=== PATIENT | female | born 1985 | race Caucasian/White ===

== ENCOUNTER 2020-01-10 07:36 | Inpatient (IN) ==
[2020-01-10] MEDS ORDERED: OXYTOCIN 30 UNITS/500 ML BAG IV PRN ×2 (08:38→22:58)
[2020-01-10] MEDS ORDERED: DINOPROSTONE 10 MG INSERT PV ONE (08:45)
--- NOTE | 2020-01-10 08:48 | History & Physical Report ---
Date of Service January 10, 2020 Assessment & Plan (1) Elective induction of labor planned: 34-year-old -0-2-2 female at 39 weeks and 3 days of gestation, presenting for induction of labor at term due to suspected larger baby Vital signs stable afebrile heart rate reassuring, estimated weight is 3687 g within normal range GBS negative, coronavirus testing is negative Cervix unfavorable Discussed induction of labor, induction agents and what to expect during induction of labor Understands it may take a 1 to 2 days Plan to admit, monitor, labs and cervical ripening with Cervidil All questions were answered Admission and Anticipated Discharge Date Admission Date: January 10, 2020 History of Present Illness Primary Care Provider: Jonathon Caba MD Patient is a 34-year-old -0-2-2 at 39 weeks and 3 days of gestation who is being admitted for induction of labor at term due to baby is measuring around 78 percentile per ultrasound. Patient has no complaints. Patient denies contractions, leakage of fluid, vaginal bleeding, headaches change in her vision, nausea or vomiting, fever nor chills, chest pain shortness of breath and leg pain. She reports good movements She denies any medical problems Advanced maternal age, and NIPT testing was low risk GBS is negative, coronavirus is negative. Patient had 2 spontaneous vaginal deliveries 9 and 11 years ago. Her last baby was 8 pounds 9 ounces and delivered without any problems. This is a new and father of baby Discuss risks of larger babies during labor and delivery with possible shoulder dystocia and possible risks to the baby Understands ultrasound is not 100% correct to estimate weight. Bedside ultrasound is done by myself, estimated weight is 3687 g. Patient understands all and desires to proceed with induction of labor. All questions were answered. 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 Beliefs That Will Affect Care: None marital status: Current Living Situation: Spouse current occupational status: employed Other Information That Helps Us Care for You: No Feels Safe at Home: Yes Safety Concerns: Feels Safe At This Time Assistive Devices: None OB History FT 's in 2009 and 2011 Ectopic in 2019: Treated with MTX Early 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/o STD's , no HSV/ Chlam/ GC Review of Systems All systems reviewed & are unremarkable except as noted in HPI & below Physical Exam Constitutional: WD/WN, vitals as above well developed Confortable Gastrointestinal (Abdomen): normal bowel sounds, soft, nontender, no hepatosplenomegaly (gravid) Genitourinary: normal external appearance Manual OB Exam: + cervical dilation 1 cm, + cervical effacement 30% and + station high OB Exam Monitor Tracing: + external uterine monitor used and + category I Results & Data ([facility]) Vital Signs (Past 12 Hours) Vital Signs Temp Pulse Resp BP 01/10/20 07:45 125 H 135/75 01/10/20 07:43 36.5 C 20
[2020-01-10 11:40] LABS: Basophils # (auto) 0.01 K/uL (0-0.2); Basophils % (auto) 0.1 %; Eosinophils # (auto) 0.08 K/uL (0-0.5); Eosinophils % (auto) 0.9 %; Hematocrit (blood only) 36.4 % (37-47); Hemoglobin 12.4 g/dL (12.0-16.0); Immature Granulocytes # (auto) 0.04 K/uL (0.00-0.02); Immature Granulocytes % (auto) 0.4 %; Lymphocytes # (auto) 1.76 K/uL (1.2-3.4); Lymphocytes % (auto) 19.5 %; Mean Corpuscular Hemoglobin 31.2 pg (25-34); Mean Corpuscular Hgb Conc 34.1 g/dL (32-36); Mean Corpuscular Volume 91.5 fL (80-100); Monocytes # (auto) 0.69 K/uL (0.11-0.59); Monocytes % (auto) 7.6 %; Neutrophils # (auto) 6.46 K/uL (1.4-6.5); Neutrophils % (auto) 71.5 %; Platelet Count 238 K/uL (130-400); RDW Coefficient of Variation 13.2 % (11.5-14.5); Red Blood Count 3.98 M/uL (4.2-5.4); White Blood Count 9.04 K/uL (4.8-10.8)
[2020-01-10] MEDS ORDERED: BUTORPHANOL TARTRATE 1 MG/ML VIAL IV PRN (22:55)
[2020-01-10] MEDS ORDERED: ONDANSETRON INJ 2 MG/ML 2 ML VIAL IV PRN (22:55)
[2020-01-10] MEDS ORDERED: FLUCONAZOLE 50 MG TAB PO ONE (22:55)
--- NOTE | 2020-01-10 22:58 | Obstetrical Progress Note ---
Date of Service January 10, 2020 Assessment & Plan Admission and Anticipated Discharge Date Admission Date: January 10, 2020 Subjective Patient is reevaluated She feels mild irregular ctxs No LOF/VB +FM's She is hungry and desires to eat VSS afebrile FHR categ I [place] ctxs 1 -5 min, was irregular, last 4 were regular q 1-2 min VE: Abundant cheezy d/c and dryness, c/w vaginal cierra Cervix: 3/ 50%/ -2 Plan 1 tb of Diflucan, light diet, continue to monitor closely Start pitocin when ctxs space out Results & Data ([facility]) Vital Signs (Past 12 Hours) Vital Signs Temp Pulse Resp BP 01/10/20 22:41 83 105/59 L 01/10/20 20:59 36.6 C 89 18 112/59 L 01/10/20 18:54 98 H 117/76 01/10/20 15:07 92 H 111/59 L 01/10/20 15:06 36.5 C 20 01/10/20 11:10 36.5 C 107 H 20 110/55 L
[2020-01-11] MEDS ORDERED: ePHEDrine sulfate 50 MG/ML AMP ONE (03:40)
[2020-01-11] MEDS ORDERED: BUPIVACAINE 0.25% 30 ML VIAL ONE (03:41)
[2020-01-11] MEDS ORDERED: SODIUM CHLORIDE 0.9% INJ 10 ML VIAL ONE (03:41)
[2020-01-11] MEDS ORDERED: fentaNYL citrate 100 MCG/2 ML VIAL ONE (03:41)
[2020-01-11] MEDS ORDERED: fentaNYL 2MCG/ML ROPIVACAINE 1.25MG/ML 100 ML BAG EPI ONE (03:42)
[2020-01-11] MEDS ORDERED: ONDANSETRON INJ 2 MG/ML 2 ML VIAL IV PRN (03:45)
[2020-01-11] MEDS ORDERED: ePHEDrine sulfate 50 MG/ML AMP IV PRN (03:45)
[2020-01-11] MEDS ORDERED: NALOXONE HCL 1 MG in SODIUM CHLORIDE 0.9% 1000ML 1,000 ML IV PRN (03:45)
[2020-01-11] MEDS ORDERED: fentaNYL 2MCG/ML ROPIVACAINE 1.25MG/ML 100 ML BAG EPI PRN (03:45)
[2020-01-11] MEDS ORDERED: NALOXONE HCL 0.4 MG/1 ML VIAL/CARP IV PRN (03:45)
[2020-01-11] MEDS ORDERED: diphenhydrAMINE 50 MG/ML VIAL IV PRN (03:45)
--- NOTE | 2020-01-11 03:46 | Anesthesiology Consultation ---
Date of Service January 11, 2020 Assessment & Plan (1) Encounter for pre-operative examination: Chart Review Chart Review: Patient NOT seen in Pre Admission Testing and Acceptable Risk for Labor Epidural Consults Requested none History Height/Weight Height: 5 ft 6 in Weight: 78.925 kg Allergies Allergy/AdvReac Type Severity Reaction Status Date / Time No Known Allergies Allergy Unknown Verified 01/10/20 07:49 Medications Home Medications Medication Instructions Recorded Confirmed Last Taken prenat.vits,ratna,uqc-elue-djiju 1 tab PO DAILY 12/04/18 01/10/20 01/06/20 08:00 Active Medications Generic Name Dose Route Start Last Admin Trade Name Freq PRN Reason Stop Dose Admin Oxytocin 30 units in 500 mls @ 8 mls/hr 01/10/20 22:58 01/11/20 02:30 Pitocin IV 01/12/20 22:57 0.48 units/hr .Q24H PRN 8 mls/hr Labor Induction/Augmentation Titration Protocol 0.48 UNITS/HR Past Medical History Medical History (Updated 01/11/20 @ 03:46 by Golden Cao MD) Ectopic Exercise / Class Metabolic Activity II 4-5 Yardwork/Stairs/Walk up hill Past Surgical History Surgical History No significant past surgical history Past Anesthesia History No Hx of Anesthesia Complications and No Family Hx of Anesthesia Complications History of PONV No Hx of PONV and No Hx of Motion Sickness Social History Smoking Status: Never smoker Do You Dip or Chew Tobacco: No Hx Alcohol Use: No Hx Substance Use: No Physical Exam Vital Signs Last Vital Signs Temp 36.5 C 01/11/20 01:59 Pulse 95 H 01/11/20 04:04 Resp 18 01/11/20 01:59 BP 144/78 H 01/11/20 04:04 Pulse Ox 97 01/11/20 04:03 Testing Laboratory Results 01/10/20 08:50 Blood Type A Positive 01/10/20 08:50 Antibody Screen NEGATIVE 01/10/20 08:50
[2020-01-11] MEDS: LACTATED RINGER'S 1,000 ML IV PRN ×3 (04:42→12:45)
--- NOTE | 2020-01-11 06:51 | Obstetrical Progress Note ---
Date of Service January 11, 2020 Assessment & Plan Admission and Anticipated Discharge Date Admission Date: January 10, 2020 Subjective Patient received epidural and comfortable VSS Afebrile VE: 4-5 cm/ 505/ -2, tight bag, AROM'ed clear fluid FHR 130's, variability was has been decreased for period of time and responded to scalp stimulation, good accels, no decel, moderate variability Pitocin has been off since 6 am due to decreased variability and mild decels after contractions Will continue to monitor closely Results & Data ([facility]) Vital Signs (Past 12 Hours) Vital Signs Temp Pulse Resp BP Pulse Ox 01/11/20 06:43 83 98 01/11/20 06:38 84 98 01/11/20 06:34 87 128/80 01/11/20 06:33 84 97 01/11/20 06:30 36.5 C 18 01/11/20 06:28 87 96 01/11/20 06:23 84 97 01/11/20 06:20 79 129/80 01/11/20 06:18 85 97 01/11/20 06:13 86 141/76 H 98 01/11/20 06:08 90 96 01/11/20 06:06 84 116/73 01/11/20 06:03 73 96 01/11/20 05:58 91 H 96 01/11/20 05:53 87 95 01/11/20 05:50 82 112/71 01/11/20 05:48 90 96 01/11/20 05:47 18 01/11/20 05:43 86 95 01/11/20 05:38 85 97 01/11/20 05:34 86 18 118/74 01/11/20 05:33 82 98 01/11/20 05:32 77 121/69 01/11/20 05:28 82 96 01/11/20 05:23 79 97 01/11/20 05:20 72 121/69 01/11/20 05:18 97 H 97 01/11/20 05:13 77 98 01/11/20 05:08 106 H 97 01/11/20 05:06 100 H 115/71 01/11/20 05:03 88 99 01/11/20 05:01 107 H 91 01/11/20 04:58 105 H 97 01/11/20 04:53 86 98 01/11/20 04:49 74 132/60 01/11/20 04:48 113 H 98 01/11/20 04:46 90 130/72 01/11/20 04:43 97 H 118/63 97 01/11/20 04:41 82 125/70 01/11/20 04:38 98 H 99 01/11/20 04:37 96 H 125/64 01/11/20 04:34 96 H 126/67 01/11/20 04:33 107 H 97 01/11/20 04:31 90 131/63 01/11/20 04:28 105 H 120/70 98 01/11/20 04:25 98 H 18 120/72 01/11/20 04:23 110 H 97 01/11/20 04:19 89 125/63 01/11/20 04:18 102 H 98 01/11/20 04:16 81 123/66 01/11/20 04:13 105 H 116/63 97 01/11/20 04:12 97 H 18 121/60 01/11/20 04:09 90 123/66 01/11/20 04:08 86 98 01/11/20 04:06 86 128/68 01/11/20 04:04 95 H 144/78 H 01/11/20 04:03 90 97 01/11/20 04:01 99 H 134/66 01/11/20 03:58 101 H 98 01/11/20 03:57 18 01/11/20 03:56 93 H 140/65 01/11/20 03:53 89 98 01/11/20 01:59 36.5 C 86 18 107/55 L 01/11/20 00:47 37.2 C 88 18 106/53 L 01/11/20 00:11 103 H 104/58 L 01/10/20 22:41 83 105/59 L 01/10/20 20:59 36.6 C 89 18 112/59 L 01/10/20 18:54 98 H 117/76
[2020-01-11] MEDS ORDERED: METHYLERGONOVINE MALEATE 0.2 MG/ML AMP ONE (14:13)
[2020-01-11] MEDS ORDERED: miSOPROStoL 200 MCG TAB ONE (14:13)
[2020-01-11] MEDS ORDERED: bisacodyL 10 MG SUPP PR PRN (14:23)
[2020-01-11] MEDS ORDERED: ACETAMINOPHEN 325 MG TAB PO PRN (14:23)
[2020-01-11] MEDS ORDERED: METHYLERGONOVINE MALEATE 0.2 MG/ML AMP IM ONE (14:23)
[2020-01-11] MEDS ORDERED: BENZOCAINE 20% AER SPR 82.5 GM CAN EXT PRN (14:23)
[2020-01-11] MEDS ORDERED: OXYTOCIN 30 UNITS/500 ML BAG IV PRN (14:23)
[2020-01-11] MEDS ORDERED: miSOPROStoL 200 MCG TAB PR ONE (14:23)
[2020-01-11 14:39] LABS: Base Excess Cord Arterial Bld -6.2 mEq/L (-9-1.8); CO2 Cord Arterial Blood 74 mmHg (39.1-73.5); HCO3 Cord Arterial Blood 25 mmol/L (19.7-28.5); PO2 Cord Arterial Blood 18 mmHg (4.1-31.7); pH Cord Arterial Blood 7.14 (7.1-7.38)
[2020-01-11 14:50] LABS: Base Excess Cord Venous Blood -5.7 mEq/L (-7.7-1.9); Cord Venous Blood HCO3 24 mmol/L (18.4-26.8); Cord Venous Blood PCO2 60 mmHg (30.4-57.2); Cord Venous Blood PO2 20 mmHg (14.1-43.3); Cord Venous Blood pH 7.21 (7.20-7.44)
[2020-01-11 14:51] LABS: O2 Saturation Cord Venous Bld < 60.0 % (<68); Oxygen Sat Cord Arterial Blood < 60.0 % (<60)
[2020-01-11] MEDS: IBUPROFEN 600 MG TAB PO PRN ×3 (15:25→23:29)
--- NOTE | 2020-01-11 15:42 | Delivery Summary ---
DATE OF OPERATION: 01/11/2020 The patient delivered a live infant in occiput anterior presentation. There was a tight nuchal cord, which was clamped and cut. Infant was delivered and given to awaiting pediatric team. Weight and Apgars are in the pediatric record. Cord blood was obtained. Placenta was spontaneously delivered. Inspection of the placenta shows a normal grossly looking 3-vessel placenta. Inspection of the perineum showed a first-degree laceration, which was repaired with 3-0 Vicryl. Rectal exam post repair shows good sphincter tone, no sutures are palpated in the rectum. Estimated blood loss is 450 mL. Baby and mother are stable in recovery. I attest to the content of the Intraoperative Record and any orders documented therein. Any exception s are noted below.
--- NOTE | 2020-01-11 15:48 | Anesthesia Procedure Note ---
Date of Service January 11, 2020 Anesthesia Post Epidural Note Vital Signs Vital Signs: Temp Pulse Resp BP Pulse Ox 36.6 C 94 H 18 149/68 H 97 01/11/20 14:19 01/11/20 15:20 01/11/20 14:19 01/11/20 15:20 01/11/20 14:28 Notes Mental Status: alert / awake / arousable Nausea / Vomiting: adequately controlled Pain: adequately controlled Airway Patency, RR, SpO2: stable & adequate BP & HR: stable & adequate Hydration State: stable & adequate Neuraxial Anesthesia: was administered and sensory block is resolving Anesthetic Complications: no major complications apparent Epidural: Removed without complications and With tip intact
[2020-01-11] MEDS: SUPERCREAM 0.870% 15 GM JAR EXT PRN (17:51)
[2020-01-11] MEDS: oxyCODONE/ACETAMINOPHEN 5mg/325mg TAB PO PRN ×2 (18:25→22:23)
[2020-01-11] MEDS ORDERED: DOCUSATE SODIUM 100 MG CAP PO ONE (19:40)
[2020-01-11] MEDS: DOCUSATE SODIUM 100 MG CAP PO SCH (19:41)
[2020-01-12] MEDS: oxyCODONE/ACETAMINOPHEN 5mg/325mg TAB PO PRN ×3 (02:28→19:45)
[2020-01-12] MEDS: IBUPROFEN 600 MG TAB PO PRN ×4 (03:38→23:06)
[2020-01-12 06:01] LABS: Hematocrit (blood only) 35.1 % (37-47); Hemoglobin 11.8 g/dL (12.0-16.0); Mean Corpuscular Hgb Conc 33.6 g/dL (32-36); Mean Corpuscular Volume 92.1 fL (80-100); Mean Platelet Volume 11.8 fL (7.4-10.4); Platelet Count 188 K/uL (130-400); RDW Coefficient of Variation 13.2 % (11.5-14.5); RDW Standard Deviation 43.8 fL (36.4-46.3); Red Blood Count 3.81 M/uL (4.2-5.4); White Blood Count 13.94 K/uL (4.8-10.8)
[2020-01-12] MEDS: DOCUSATE SODIUM 100 MG CAP PO SCH ×2 (07:47→19:44)
[2020-01-12] MEDS: FERROUS SULFATE 325 MG TAB PO SCH (07:47)
[2020-01-12] MEDS: PRENATAL VITAMIN 1 TAB PO SCH (07:48)
[2020-01-12] MEDS ORDERED: DIPHTHERIA/TETANUS/PERTUSSIS 0.5 ML SYR/VIAL IM ONE (09:00)
--- NOTE | 2020-01-12 09:15 | Obstetrical Progress Note ---
Date of Service January 12, 2020 Assessment & Plan Admission and Anticipated Discharge Date Admission Date: January 10, 2020 Subjective Patient is seen and examined. She feels well, no complaints. Ambulating without dizziness Voiding without difficulty Tolerating regular diet with out N&V Bleeding is minimal No fever/ chills/ CP/ SOB/ N&V/ Leg pain Breast feeding without problems Vital Signs Temp Pulse Resp BP Pulse Ox 01/12/20 07:30 36.5 C 73 18 103/66 96 01/12/20 03:25 36.5 C 67 16 110/70 01/11/20 23:10 36.4 C L 69 18 113/72 Lab Results 01/10/20 01/10/20 01/11/20 Range/Units 08:50 08:50 14:06 WBC 9.04 (4.8-10.8) K/uL RBC 3.98 L (4.2-5.4) M/uL Hgb 12.4 (12.0-16.0) g/dL Hct 36.4 L (37-47) % MCV 91.5 (80-100) fL MCH 31.2 (25-34) pg MCHC 34.1 (32-36) g/dL RDW Std Deviation 44.0 (36.4-46.3) fL RDW Coeff of Jonathan 13.2 (11.5-14.5) % Plt Count 238 (130-400) K/uL MPV 12.0 H (7.4-10.4) fL Immature Gran % (Auto) 0.4 % Neut % (Auto) 71.5 % Lymph % (Auto) 19.5 % T[place] % (Auto) 7.6 % Eos % (Auto) 0.9 % Baso % (Auto) 0.1 % Neut # (Auto) 6.46 (1.4-6.5) K/uL Lymph # (Auto) 1.76 (1.2-3.4) K/uL Titus # (Auto) 0.69 H (0.11-0.59) K/uL Eos # (Auto) 0.08 (0-0.5) K/uL Baso # (Auto) 0.01 (0-0.2) K/uL Immature Gran # (Auto) 0.04 H (0.00-0.02) K/uL Cord ABG pH 7.14 (7.1-7.38) Cord ABG pCO2 74 H (39.1-73.5) mmHg Cord ABG pO2 18 (4.1-31.7) mmHg Cord ABG HCO3 25 (19.7-28.5) mmol/L Cord ABG Base Excess -6.2 (-9-1.8) mEq/L Cord ABG O2 Sat < 60.0 (<60) % Cord VBG pH (7.20-7.44) Cord VBG pCO2 (30.4-57.2) mmHg Cord VBG pO2 (14.1-43.3) mmHg Cord VBG HCO3 (18.4-26.8) mmol/L Cord VBG Base Excess (-7.7-1.9) mEq/L Cord VBG O2 Sat (<68) % Barometric Pressure 732.5 mm/Hg Blood Gas Comments ABEL Blood Type A Positive Antibody Screen NEGATIVE 01/11/20 01/12/20 Range/Units 14:06 05:43 WBC 13.94 H (4.8-10.8) K/uL RBC 3.81 L (4.2-5.4) M/uL Hgb 11.8 L (12.0-16.0) g/dL Hct 35.1 L (37-47) % MCV 92.1 (80-100) fL MCH 31.0 (25-34) pg MCHC 33.6 (32-36) g/dL RDW Std Deviation 43.8 (36.4-46.3) fL RDW Coeff of Jonathan 13.2 (11.5-14.5) % Plt Count 188 (130-400) K/uL MPV 11.8 H (7.4-10.4) fL Immature Gran % (Auto) % Neut % (Auto) % Lymph % (Auto) % [place] % (Auto) % Eos % (Auto) % Baso % (Auto) % Neut # (Auto) (1.4-6.5) K/uL Lymph # (Auto) (1.2-3.4) K/uL [place]itus # (Auto) (0.11-0.59) K/uL Eos # (Auto) (0-0.5) K/uL Baso # (Auto) (0-0.2) K/uL Immature Gran # (Auto) (0.00-0.02) K/uL Cord ABG pH (7.1-7.38) Cord ABG pCO2 (39.1-73.5) mmHg Cord ABG pO2 (4.1-31.7) mmHg Cord ABG HCO3 (19.7-28.5) mmol/L Cord ABG Base Excess (-9-1.8) mEq/L Cord ABG O2 Sat (<60) % Cord VBG pH 7.21 (7.20-7.44) Cord VBG pCO2 60 H (30.4-57.2) mmHg Cord VBG pO2 20 (14.1-43.3) mmHg Cord VBG HCO3 24 (18.4-26.8) mmol/L Cord VBG Base Excess -5.7 (-7.7-1.9) mEq/L Cord VBG O2 Sat < 60.0 (<68) % Barometric Pressure 732.4 mm/Hg Blood Gas Comments ABEL Blood Type Antibody Screen PE: General: Alert, orientedx3, NAD Abd: soft, NT, fundus firm, below Umbilicus Perineum intact, bilateral labial swelling Lochia rubra minimal Ext; NT, no edema AP: 34 yo s/p , ppd# 1 VSS Afebrile doing well Continue routine care Ice packs to labia All questions were answered D/C home tomorrow Results & Data ([facility]) Vital Signs (Past 12 Hours) Vital Signs Temp Pulse Resp BP Pulse Ox 01/12/20 07:30 36.5 C 73 18 103/66 96 01/12/20 03:25 36.5 C 67 16 110/70 01/11/20 23:10 36.4 C L 69 18 113/72
[2020-01-12] MEDS: HYDROCORTISONE ACETATE 25 MG SUPP PR PRN ×2 (13:46→19:44)
[2020-01-12] MEDS ORDERED: bisacodyL 5 MG TABEC PO SCH (20:00)
[2020-01-13] MEDS: IBUPROFEN 600 MG TAB PO PRN ×2 (05:20→09:50)
[2020-01-13 06:44] LABS: Hematocrit (blood only) 32.4 % (37-47); Hemoglobin 10.9 g/dL (12.0-16.0)
[2020-01-13] MEDS: PRENATAL VITAMIN 1 TAB PO SCH (08:26)
[2020-01-13] MEDS: FERROUS SULFATE 325 MG TAB PO SCH (08:26)
[2020-01-13] MEDS: DOCUSATE SODIUM 100 MG CAP PO SCH (08:26)
--- NOTE | 2020-01-13 10:47 | Surgery Progress Note ---
Date of Service January 13, 2020 Assessment & Plan Admission and Anticipated Discharge Date Admission Date: January 10, 2020 Subjective POD#2 doing well plans for d/c passing gas tolerating diet out of bed and doing well with no dizziness or SOB Physical Exam Constitutional: WD/WN, vitals as above comfortable incision c/d/i abdomen soft and non-tender no edema neg Inga's plans for d/c Results & Data ([facility]) Vital Signs (Past 12 Hours) Vital Signs Temp Pulse Resp BP Pulse Ox 01/13/20 07:40 36.7 C 76 16 123/76 95 01/12/20 23:00 36.5 C 70 16 121/75 94
[2020-01-13] MEDS ORDERED: MEASLES, MUMPS & RUBELLA VIRUS VIAL SQ ONE (10:56)
[2020-01-13] MEDS: SUPERCREAM 0.870% 15 GM JAR EXT PRN (11:18)
== END 2020-01-13 14:15 | disposition home or self-care (01) | DRG 807 ==
LOC: 4S1 07:36 → 4S2 01-11 18:35
DX: Z3A.39 39 weeks gestation of pregnancy; O36.63X1 Maternal care for excessive fetal growth, third trimester, fetus 1; O70.0 First degree perineal laceration during delivery; Z37.0 Single live birth